=== PATIENT | male | born 1950 | race Caucasian/White ===

== ENCOUNTER 2018-08-11 03:58 | Inpatient (IN) | payer MEDICARE ==
[2018-08-11] VITALS (25 sets, daily range): BP systolic 122–172; BP diastolic 73–105
[~2018-08-11] VITALS: Ht 188 cm; Wt 106.3 kg
[2018-08-11] MEDS ORDERED: dilTIAZem 25 MG/5 ML VIAL IVP ONE ×3 (04:13→05:15)
[2018-08-11] MEDS ORDERED: IV DEXTROSE 5% 100 ML IV ONE (04:14)
[2018-08-11] MEDS ORDERED: LORazepam 2 MG/ML VIAL IV ONE (04:30)
[2018-08-11] MEDS: IV NORMAL SALINE 1,000ML 1,000 ML IV SCH ×4 (04:37→16:41)
[2018-08-11 04:57] LABS: BASO % 0 % (0-3); EOS % 0 % (0-3); HEMOGLOBIN 15.1 g/dL (13.0-17.5); LYMPH # 0.5 x10^3/uL (1.0-4.8); LYMPH % 6 % (24-48); MEAN CORPUSCULAR HEMOGLOBIN 35 pg (25-35); MEAN CORPUSCULAR HGB CONC 35 g/dL (31-37); MEAN CORPUSCULAR VOLUME 101 fL (79-100); MONO # 0.3 x10^3/uL (0.0-1.1); MONO % 4 % (0-9); NEUT # 7.8 x10^3uL (1.8-7.7); NEUT % 90 % (31-73); PLATELET COUNT 305 x10^3/uL (140-400); RED BLOOD COUNT 4.27 x10^6/uL (4.30-5.70); RED CELL DISTRIBUTION WIDTH 14.8 % (11.5-14.5); WHITE BLOOD COUNT 8.6 x10^3/uL (4.0-11.0)
--- NOTE | 2018-08-11 05:02 | PHYS DOC ---
Adult General Chief Complaint Chief Complaint: nausea and vomiting HPI HPI Patient is a 67 year old male who presents with complaint of nausea and vomiting. Patient states his symptoms started 2 days ago. Patient states that he has not been able to keep anything down both liquids and solids. Due to worsening symptoms he called EMS. Patient was noted to have tachycardia on their arrival and rhythm showed showed atrial fibrillation. Patient denies any previous history of atrial fibrillation. Patient states that he was recently hospitalized 3 months ago at another facility due to respiratory infection. Denies any pain currently but states he does feel sick to his stomach. Patient admits to heavy alcohol use stating that he drinks approximately 1 pint of alcohol daily. Patient's last drink of alcohol was 2 days ago. Review of Systems Review of Systems Constitutional: Denies fever or chills [] Eyes: Denies change in visual acuity, redness, or eye pain [] HENT: Denies nasal congestion or sore throat [] Respiratory: Shortness of breath, denies cough[] Cardiovascular: Chronic edema right lower extremity greater than left, denies chest pain[] GI: Nausea, vomiting, denies abdominal pain, bloody stools or diarrhea [] : Denies dysuria or hematuria [] Musculoskeletal: Denies back pain or joint pain [] Integument: Denies rash or skin lesions [] Neurologic: Denies headache, focal weakness or sensory changes [] All other systems were reviewed and found to be within normal limits, except as documented in this note. Current Medications Current Medications Current Medications Medications (Trade) Dose Ordered Sig/Robin Start Time Stop Time Status Last Admin Dose Admin Dextrose 100 ml @ As Directed STK-MED ONCE 08/11/18 04:14 08/11/18 04:15 DC Diltiazem HCl (Cardizem Iv Push) 20 mg 1X ONCE 08/11/18 04:15 08/11/18 04:16 UNV Diltiazem HCl (Cardizem) 125 mg STK-MED ONCE 08/11/18 04:13 08/11/18 04:14 DC Sodium Chloride 1,000 ml @ 125 mls/hr Q8H 08/11/18 04:15 08/11/18 12:14 UNV Allergies Allergies Allergies Coded Allergies Type Severity Reaction Last Updated Verified No Known Drug Allergies 08/11/18 No Physical Exam Physical Exam Constitutional: Alert, afebrile, appears anxious. [] HENT: Normocephalic, atraumatic, bilateral external ears normal, oropharynx moist, no oral exudates, nose normal. [] Eyes: PERRLA, EOMI, conjunctiva normal, no discharge. [] Neck: Normal range of motion, no tenderness, supple, no stridor. [] Cardiovascular: Tachycardia, irregular rhythm, no murmur [] Lungs & Thorax: Bilateral breath sounds clear to auscultation [] Abdomen: Bowel sounds normal, soft, no tenderness, no masses, no pulsatile masses. [] Skin: Warm, dry, no erythema, no rash. [] Back: No tenderness, no CVA tenderness. [] Extremities: No tenderness, no cyanosis, no clubbing, ROM intact, 2+ pitting edema and right lower extremity, 1+ pitting edema in left lower extremity. [] Neurologic: Alert and oriented X 3, tremulous, motor strength normal and symmetric, no focal deficits noted. [] Current Patient Data Vital Signs Vital Signs Date Time Temp Pulse Resp B/P (MAP) Pulse Ox O2 Delivery O2 Flow Rate FiO2 08/11/18 05:15 131 153/104 Lab Results Laboratory Tests Test 08/11/18 04:25 White Blood Count 8.6 x10^3/uL Red Blood Count 4.27 x10^6/uL Hemoglobin 15.1 g/dL Hematocrit 43.0 % Mean Corpuscular Volume 101 fL Mean Corpuscular Hemoglobin 35 pg Mean Corpuscular Hemoglobin Concent 35 g/dL Red Cell Distribution Width 14.8 % Platelet Count 305 x10^3/uL Neutrophils (%) (Auto) 90 % Lymphocytes (%) (Auto) 6 % Monocytes (%) (Auto) 4 % Eosinophils (%) (Auto) 0 % Basophils (%) (Auto) 0 % Neutrophils # (Auto) 7.8 x10^3uL Lymphocytes # (Auto) 0.5 x10^3/uL Monocytes # (Auto) 0.3 x10^3/uL Eosinophils # (Auto) 0.0 x10^3/uL Basophils # (Auto) 0.0 x10^3/uL Prothrombin Time 11.1 SEC Prothromb Time International Ratio 1.1 Activated Partial Thromboplast Time 26 SEC D-Dimer (Urmila) 0.76 mg/L Sodium Level 126 mmol/L Potassium Level 3.8 mmol/L Chloride Level 88 mmol/L Carbon Dioxide Level 22 mmol/L Anion Gap 16 Blood Urea Nitrogen 7 mg/dL Creatinine 1.1 mg/dL Estimated GFR (Cockcroft-Gault) 66.4 BUN/Creatinine Ratio 6 Glucose Level 152 mg/dL Calcium Level 8.6 mg/dL Magnesium Level 1.2 mg/dL Total Bilirubin 3.2 mg/dL Aspartate Amino Transf (AST/SGOT) 34 U/L Alanine Aminotransferase (ALT/SGPT) 36 U/L Alkaline Phosphatase 147 U/L Creatine Kinase 120 U/L Creatine Kinase MB (Mass) 2.5 ng/mL Creatine Kinase MB Relative Index 2.1 % Troponin I Quantitative < 0.017 ng/mL UQ-Iin-W-Type Natriuretic Peptide 1330 pg/mL Total Protein 7.2 g/dL Albumin 4.1 g/dL Albumin/Globulin Ratio 1.3 Current Medications Medications (Trade) Dose Ordered Sig/Robin Route PRN Reason Start Time Stop Time Status Last Admin Dose Admin Diltiazem HCl (Cardizem) 125 mg STK-MED ONCE IV 08/11/18 04:13 08/11/18 04:14 DC Diltiazem HCl (Cardizem Iv Push) 25 mg STK-MED ONCE IVP 08/11/18 04:13 08/11/18 04:14 DC Diltiazem HCl (Cardizem Iv Push) 20 mg 1X ONCE IVP 08/11/18 04:15 08/11/18 05:06 DC 08/11/18 04:38 Dextrose 100 ml @ As Directed STK-MED ONCE IV 08/11/18 04:14 08/11/18 04:15 DC Sodium Chloride 1,000 ml @ 125 mls/hr Q8H IV 08/11/18 04:15 08/11/18 12:14 08/11/18 04:37 Lorazepam (Ativan) 2 mg 1X ONCE IV 08/11/18 04:30 08/11/18 05:06 DC 08/11/18 04:55 Diltiazem HCl (Cardizem Iv Push) 25 mg 1X ONCE IVP 08/11/18 05:15 08/11/18 05:16 08/11/18 05:15 Diltiazem HCl 125 mg/Dextrose 125 ml @ 10 mls/hr 1X ONCE IV 08/11/18 05:15 08/11/18 17:44 08/11/18 05:16 Magnesium Sulfate 50 ml @ 25 mls/hr 1X ONCE IV 08/11/18 05:30 08/11/18 07:29 UNV EKG EKG Interpreted by me: Heart rate 143, atrial fibrillation with rapid ventricular response, no acute ST elevations or depressions[] Radiology/Procedures Radiology/Procedures One view AP chest x-ray interpreted by me: No infiltrates, no effusions, cardiomegaly present[] Course & Med Decision Making Course & Med Decision Making Pertinent Labs and Imaging studies reviewed. (See chart for details) After IV access was obtained, the patient was given an initial dose of 20 mg of IV diltiazem with brief improvement in heart rate. Patient's heart rate however increased back to 150 bpm. The patient also appeared anxious and with his reported heavy alcohol use, 2 mg of IV Ativan was given with no significant change in symptoms. Patient was then given 25 mg of IV diltiazem with a diltiazem drip started shortly after. The patient's current heart rate has improved to 105-115 bpm. Patient remains in atrial fibrillation at this time. Blood pressure has remained stable while on diltiazem. Metabolic panel shows multiple abnormalities including decreased sodium and decreased magnesium levels. Patient shows an elevation in bilirubin levels but is not having active pain at this time. D-dimer levels found to be elevated. Patient given full anticoagulation dose of Lovenox in the emergency department to prevent thrombus formation from atrial fibrillation as well as treatment of possible pulmonary thromboembolism. CT angiogram of the chest was ordered and results pending at time of admission. I spoke with Dr. Helms of cardiology who agreed to consult on patient in hospital here at [facility]. Patient admitted to Dr. Pitt. Dr. Pitt will follow up with results of CT angiogram. Critical care time excluding procedures: 50 minutes Dragon Disclaimer Dragon Disclaimer This electronic medical record was generated, in whole or in part, using a voice recognition dictation system. Departure Departure: Impression: Primary Impression: Atrial fibrillation with RVR Additional Impressions: Hypomagnesemia Hyponatremia Hyperbilirubinemia History of heavy alcohol consumption Elevated d-dimer Nausea and vomiting Disposition: ADMITTED INPATIENT Admitting Physician: Clementina Pitt Condition: GUARDED Problem Qualifiers Additional Impressions: Nausea and vomiting Vomiting type: unspecified Vomiting Intractability: unspecified Qualified Codes: R11.2 - Nausea with vomiting, unspecified AMMON POPE MD Aug 11, 2018 05:02
[2018-08-11] MEDS ORDERED: dilTIAZem VIAL 125 MG in IV DEXTROSE 5% 100 ML IV ONE (05:15)
[2018-08-11 05:22] LABS: ALBUMIN 4.1 g/dL (3.4-5.0); ALBUMIN/GLOBULIN RATIO 1.3 (1.0-1.7); CALCIUM 8.6 mg/dL (8.5-10.1); CREATININE 1.1 mg/dL (0.7-1.3); GFR 66.4; MAGNESIUM 1.2 mg/dL (1.8-2.4); POTASSIUM 3.8 mmol/L (3.5-5.1); TOTAL BILIRUBIN 3.2 mg/dL (0.2-1.0); TOTAL PROTEIN 7.2 g/dL (6.4-8.2)
[2018-08-11] MEDS ORDERED: ENOXAPARIN ** NOTE DOSE ** SYRINGE SQ ONE (05:45)
[2018-08-11] MEDS ORDERED: MAGNESIUM SULFATE 2GM 50 ML IV ONE (05:45)
[2018-08-11] MEDS ORDERED: ACETAMINOPHEN 325 MG TABLET PO PRN (06:00)
[2018-08-11] MEDS ORDERED: ONDANSETRON PF 4 MG/2 ML VIAL. IV PRN (06:00)
[2018-08-11] MEDS ORDERED: IOHEXOL 350 MG/ML 50 ML VIAL. IV ONE ×2 (06:15)
[2018-08-11] MEDS ORDERED: CONTRAST GIVEN MC PRN (06:15)
[2018-08-11] MEDS ORDERED: IOHEXOL 300 MG/ML 50 ML VIAL. IV ONE ×2 (06:15)
--- NOTE | 2018-08-11 06:26 | EKG ---
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
--- NOTE | 2018-08-11 07:08 | RAD ---
INDICATION: Increased D-Dimer, A-Fib w RVR
COMPARISON: Chest x-ray earlier same day TECHNIQUE: Axial CT images obtained through the chest. Intravenous contrast utilized. Angiogram 3D images processed per protocol. One or more of the following individualized dose reduction techniques were utilized for this examination: 1. Automated exposure control; 2. Adjustment of the mA and/or kV according to patient size; 3. Use of iterative reconstruction technique. FINDINGS: There is a couple of sub-4 mm right lung nodules. Motion obscures portions of the chest including the lung bases. No evidence of pneumothorax. Liver is low density in partially seen. Nonspecific but can be seen with fatty infiltration. Small pericardial fluid. Bilateral perinephric stranding partially seen. Small hiatal hernia versus fullness distal esophagus. Limited evaluation of thoracic aorta secondary to only small amount of contrast within. Also limited evaluation of ascending thoracic aorta secondary to obscured by motion. There is some scattered plaque seen. Degenerative changes the spine. Multiple bilateral rib fractures with some callus formation. ascending thoracic aorta measures up to about 4 cm which is mildly prominent. IMPRESSION: No central pulmonary embolus. Limited peripherally secondary to motion especially at the lung bases. There are couple of sub-4 mm right lung nodules. Multiple bilateral rib fractures with callus formation. The esophagus is distended with fluid/debris within. The wall also appears somewhat prominent distally. Would correlate with symptoms to ensure there is not a pathologic cause such as esophagitis or reflux Liver is low-attenuation. Nonspecific but can be seen with fatty infiltration. There is also possible prominence of the wall of the partially visualized gallbladder. Ultrasound could better evaluate. Electronically signed by: Rubens Benson MD (08/11/2018 7:05 AM) [facility]
--- NOTE | 2018-08-11 07:47 | RAD ---
Portable chest, 08/11/2018: HISTORY: Palpitations The heart size and pulmonary vascularity are normal. There is minimal linear scarring or atelectasis in the left base. The lungs are otherwise clear. There is no evidence of pleural fluid. IMPRESSION: Minimal left basilar linear scarring or atelectasis. Electronically signed by: David Christensen MD (08/11/2018 7:43 AM) [facility]
[2018-08-11] MEDS ORDERED: DIGOXIN IV 500 MCG/2 ML AMPUL. IV ONE (09:00)
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
[2018-08-11] MEDS ORDERED: TRAZ-85 PO (10:16)
[2018-08-11] MEDS ORDERED: IPRA3AMP29 NEB (10:16)
[2018-08-11] MEDS ORDERED: ATOR40TA59 PO (10:16)
[2018-08-11] MEDS ORDERED: TRIA1CAP3 PO (10:16)
[2018-08-11] MEDS ORDERED: PANT40TA3 PO (10:16)
[2018-08-11] MEDS ORDERED: ESCITALOPRAM OX10 MG PO (10:16)
[2018-08-11] MEDS ORDERED: LORazepam 1 MG TABLET PO PRN ×2 (10:45)
[2018-08-11] MEDS ORDERED: IPRATRPIUM/ALBUTEROL 0.5/2.5MG 3 ML NEBU. NEB PRN (10:45)
[2018-08-11] MEDS ORDERED: LORazepam 2 MG/ML VIAL IV PRN ×4 (10:45)
[2018-08-11] MEDS ORDERED: chlordiazePOXIDE HCL 25 MG CAPSULE PO PRN ×2 (10:45)
--- NOTE | 2018-08-11 11:22 | HP ---
ADMIT DATE: 08/11/2018 HISTORY OF PRESENT ILLNESS: The patient is a 67-year-old male patient who came to the Emergency Room with a complaint of nausea and vomiting. His symptoms started about 2 days ago. The patient stated that he has not been able to keep anything down, both liquids and solids. Due to worsening symptoms, he called emergency medical service personnel and the patient was noted to have tachycardia on their arrival and the rhythm showed atrial fibrillation. When I questioned him actually, he stated that he was diagnosed with atrial fibrillation when his had pneumonia before and was actually treated with a blood thinner. In fact, he was on Xarelto that he has not filled for more than 4 months ago. His was recently and apparently, the patient went into severe depression for which he was started on trazodone; however, he has been drinking alcohol heavily and drinks about 2 liters of gin in 1 week. He was evaluated in the Emergency Room, was found to be in atrial fibrillation with rapid ventricular response and was given a Cardizem loading dose and started on Cardizem drip and was admitted to ICU for further evaluation and treatment. While in the Emergency Room, he was found also to have elevated D-dimer at 0.6. His chemistry showed that he had also has hyponatremia and hypochloremia and severe hypomagnesemia that were corrected. PAST MEDICAL HISTORY: Significant for recent history of pneumonia, atrial fibrillation, hypertension, hyperlipidemia, benign prostatic hypertrophy. PAST SURGICAL HISTORY: Significant for tonsillectomy, colonoscopy with polypectomy x 2. ALLERGIES: He has no known drug allergies. MEDICATIONS: He is currently on following medications: He is on Protonix 40 mg once a day, atorvastatin 40 mg at bedtime. He is on trazodone 50 mg at bedtime, Lexapro 10 mg once a day, triamterene/hydrochlorothiazide 37.5/25 one tablet once a day. He was also on Xarelto that he has not refilled for the last 4 months. FAMILY HISTORY: He has one brother, older, of lung cancer and another sister also of bone cancer. His younger sister is alive and healthy. His father at age of 84 because of CVA and end-stage renal disease. Mother at age of 84 and has multiple medical problems. SOCIAL HISTORY: He was recently, has two daughters and one son. He does not smoke; however, he drinks alcohol heavily. He said he finishes 2 liters of gin a week. He is retired from the [employer] office. 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 REVIEW OF SYSTEMS: The patient denied any blurring of vision, cataract, glaucoma, or macular degeneration. Denied any earache, tinnitus, or sensorineural deafness. Denied any nosebleeds, stuffy nose, or postnasal drip. Denied any sore throat, sore tongue, toothache, hoarseness of voice or difficulty swallowing. Did complain of nausea, vomiting, but denied any diarrhea or constipation. Denied any hematemesis, melena, or hematochezia. Denied any dysuria, frequency, or hematuria. Did complain of nocturia. Denied any chest pain, shortness of breath, cough, phlegm, or hemoptysis. Denied any chills, rigors, or fever. Did complain of hiccupping that has been going continuously for the last 2-3 days. PHYSICAL EXAMINATION: VITAL SIGNS: When I examined him in the ICU, he has reverted back to sinus rhythm. His heart rate was 78, blood pressure 156/100, temperature was 98, respiratory rate was 20, and oxygen saturation was 97% on room air. HEAD, EYES, EARS, NOSE AND THROAT: Showed normocephalic, atraumatic. NECK: Supple. HEART: Showed normal first and second heart sounds. No gallop, rub, or murmur. CHEST: Clear to auscultation. No crepitation or rhonchi. ABDOMEN: Distended, soft, nontender. NEUROLOGIC: He was awake, alert, responding appropriately. All cranial nerves intact. He moves extremities without difficulty. He apparently ambulates without assistance or assistive devices. LABORATORY DATA: Showed a white cell count of 8600, hemoglobin 15, hematocrit 43, MCV 101, and platelet count of 305,000 with normal manual differential. His prothrombin time was 11.1, INR 1.1, aPTT was 26, and D-dimer was 0.76. His serum sodium was 126, potassium 3.8, chloride 88, bicarbonate 22, anion gap of 16, BUN 7, creatinine 1.1, estimated GFR was 66 mL per minute, his glucose 152, calcium was 8.6, magnesium was 1.2. Total bilirubin was 3.2. AST, ALT were normal. Alkaline phosphatase was slightly elevated. His creatinine kinase was 120. First set of cardiac enzymes showed troponin to be less than 0.017. His beta natriuretic peptide was 1330. Total protein was 7.2, albumin was 4.1. He has had a chest x-ray, which showed that the heart size and pulmonary vascularity are normal. There is minimal linear scarring or atelectasis in the left base. The lungs are otherwise clear. There is no evidence of pleural effusion as he has also elevated D-dimer. He underwent a CT angiography of the chest, which basically showed that there is no evidence of pneumothorax. Liver is low density and partially seen nonspecific, but can be seen with fatty infiltration, small pericardial fluid. Bilateral perinephric stranding partially seen. Small hiatal hernia versus fullness of distal esophagus, limited evaluation of the thoracic aorta secondary to only small amount of contrast within, also limited evaluation of the ascending thoracic aorta secondary to obscured excretion by motion. There is some scattered plaques seen. Degenerative changes in the spine, multiple bilateral rib fractures with some callus formation. The ascending thoracic aorta measures up to about 4 cm, which is mildly prominent. The impression the patient has no central pulmonary emboli limited peripherally secondary to motion, especially at the lung bases. There are a couple of 4 mm right lung nodules, multiple bilateral rib fractures with callus formation. The esophagus is distended with fluid and debris within. The wall also appears somewhat prominent distally, would correlate symptoms to ensure there is no pathology cause such as esophagitis or reflux. There is also possible prominence of the wall of the partially visualized gallbladder, ultrasound can better evaluate. My plan is obviously to continue with the Lovenox for now, continue with diltiazem. I will arrange for him to have an abdominal ultrasound as he has elevated bilirubin and alkaline phosphatase, raising possibility of biliary obstruction and we will repeat all his lab work again. I will start him also on baclofen for his hiccupping. BLANCA FRASER MD DR: [email or web address]/georges JOB#: [id number] / [id number]
[2018-08-11 12:50] LABS: ALBUMIN 3.6 g/dL (3.4-5.0); ALBUMIN/GLOBULIN RATIO 1.2 (1.0-1.7); CREATININE 1.3 mg/dL (0.7-1.3); GFR 54.7; POTASSIUM 3.5 mmol/L (3.5-5.1); TOTAL BILIRUBIN 3.1 mg/dL (0.2-1.0); TOTAL PROTEIN 6.6 g/dL (6.4-8.2)
[2018-08-11] MEDS: BACLOFEN 10 MG TABLET PO SCH ×3 (13:26→21:30)
[2018-08-11] MEDS ORDERED: ASPI-612 PO (13:40)
[2018-08-11] MEDS ORDERED: MULT-245 PO (13:40)
--- NOTE | 2018-08-11 15:52 | CARD ---
MR#: [id number] Date of Study: 08/11/2018 Ordering Physician: CHACHO CHOUDHARY, Referring Physician: BLANCA FRASER Tech: Cornelia Valero AMITA APPROVED REPORT EXAM: Two-dimensional and M-mode echocardiogram with Doppler and color Doppler. Other Information Quality : Technically LimitedHR: 68bpm Rhythm : NSR INDICATION Arrhythmia 2D DIMENSIONS RVDd4.3 (2.9-3.5cm)Left Atrium(2D)4.5 (1.6-4.0cm) IVSd1.5 (0.7-1.1cm)Aortic Root(2D)4.0 (2.0-3.7cm) LVDd4.9 (3.9-5.9cm)LVOT Diameter2.8 (1.8-2.4cm) PWd1.1 (0.7-1.1cm)LVDs3.4 (2.5-4.0cm) FS (%) 29.0 %SV61.2 ml LVEF(%)55.6 (>50%) M-Mode DIMENSIONS Left Atrium(MM)4.53 (2.5-4.0cm)Aortic Root4.06 (2.2-3.7cm) Aortic Valve AoV Peak Jamal.177.6cm/sAoV VTI37.8cm AO Peak GR.12.6mmHgLVOT Peak Jamal.159.5cm/s LVOT VTI 33.06cmAO Mean GR.7mmHg VALE (VMAX)5.19vp5JXM (VTI)5.51cm2 Mitral Valve MV E Cwaixgfm945.8cm/sMV DECEL [id number] MV A Xqmsnyvd51.4cm/sE/A Ratio1.6 MV A [id number] Pulmonary Valve PV Peak Umpzyskl484.1cm/sPV Peak Grad.4mmHg LEFT VENTRICLE The left ventricle is normal size. There is mild concentric left ventricular hypertrophy. The left ve ntricular systolic function is normal and the ejection fraction is within normal range. The Ejection Fraction is 55-60%. There is normal LV segmental wall motion. Transmitral Doppler flow pattern is Gra de II-pseudonormal filling dynamics. RIGHT VENTRICLE The right ventricle is mildly dilated. There is normal right ventricular wall thickness. The right ve ntricular systolic function is normal. ATRIA The left atrium is mildly dilated. The right atrium is mildly dilated. The interatrial septum is inta ct with no evidence for an atrial septal defect or patent foramen ovale as noted on 2-D or Doppler im aging. AORTIC VALVE The aortic valve is probably trileaflet. Doppler and Color Flow revealed no significant aortic regurg itation. There is no significant aortic valvular stenosis. MITRAL VALVE The mitral valve is normal in structure and function. There is no evidence of mitral valve prolapse. There is no mitral valve stenosis. Doppler and Color Flow revealed no mitral valve regurgitation note d. TRICUSPID VALVE The tricuspid valve is normal in structure and function. Doppler and Color Flow revealed no tricuspid valve regurgitation noted. There is no tricuspid valve prolapse or vegetation. There is no tricuspid valve stenosis. PULMONIC VALVE Pulmonic valve not well visualized. GREAT VESSELS The aortic root is mildly enlarged. The ascending aorta is Mildly dilated. The IVC is normal in size and collapses >50% with inspiration. PERICARDIAL EFFUSION There is no evidence of significant pericardial effusion. Fat pad noted. Critical Notification Critical Value: No <Conclusion> The left ventricular systolic function is normal and the ejection fraction is within normal range. Th e Ejection Fraction is 55-60%. There is normal LV segmental wall motion. Signed by : Ronnie Helms, Electronically Approved : 08/11/2018 15:51:02
[2018-08-11 17:31] LABS: THYROID STIM HORMONE (TSH) 2.81 uIU/mL (0.358-3.740)
[2018-08-11] MEDS: TAMSULOSIN 0.4 MG CAP.ER.24H. PO SCH (21:30)
[2018-08-11] MEDS: ATORVASTATIN CALCIUM 20 MG TABLET PO SCH (21:30)
[2018-08-11] MEDS: ENOXAPARIN ** NOTE DOSE ** SYRINGE SQ SCH (21:38)
[2018-08-11] MEDS: MAGNESIUM OXIDE 400 MG TABLET PO SCH (22:35)
[2018-08-12] VITALS (13 sets, daily range): BP systolic 103–159; BP diastolic 46–94
[2018-08-12] MEDS: IV NORMAL SALINE 1,000ML 1,000 ML IV SCH (01:45)
[2018-08-12 06:19] LABS: BASO % 1 % (0-3); EOS % 1 % (0-3); HEMATOCRIT 35.9 % (39.0-53.0); HEMOGLOBIN 12.5 g/dL (13.0-17.5); LYMPH # 0.9 x10^3/uL (1.0-4.8); LYMPH % 22 % (24-48); MEAN CORPUSCULAR HEMOGLOBIN 35 pg (25-35); MEAN CORPUSCULAR HGB CONC 35 g/dL (31-37); MEAN CORPUSCULAR VOLUME 102 fL (79-100); MONO # 0.4 x10^3/uL (0.0-1.1); MONO % 9 % (0-9); NEUT # 2.9 x10^3uL (1.8-7.7); NEUT % 68 % (31-73); PLATELET COUNT 220 x10^3/uL (140-400); RED BLOOD COUNT 3.54 x10^6/uL (4.30-5.70); RED CELL DISTRIBUTION WIDTH 14.7 % (11.5-14.5); WHITE BLOOD COUNT 4.3 x10^3/uL (4.0-11.0)
[2018-08-12 06:35] LABS: ALBUMIN/GLOBULIN RATIO 1.2 (1.0-1.7); CALCIUM 7.7 mg/dL (8.5-10.1); CREATININE 1.3 mg/dL (0.7-1.3); GFR 54.7; MAGNESIUM 1.8 mg/dL (1.8-2.4); POTASSIUM 3.1 mmol/L (3.5-5.1); TOTAL BILIRUBIN 2.5 mg/dL (0.2-1.0); TOTAL PROTEIN 5.6 g/dL (6.4-8.2)
[2018-08-12] MEDS ORDERED: POTASSIUM CHLORIDE 20 MEQ TABLET.ER. PO ONE (07:30)
[2018-08-12] MEDS: PANTOPRAZOLE 40 MG TABLET. PO SCH (08:33)
[2018-08-12] MEDS: MAGNESIUM OXIDE 400 MG TABLET PO SCH ×2 (08:33→20:50)
[2018-08-12] MEDS: BACLOFEN 10 MG TABLET PO SCH ×4 (08:33→20:50)
[2018-08-12] MEDS: ENOXAPARIN ** NOTE DOSE ** SYRINGE SQ SCH (08:38)
--- NOTE | 2018-08-12 09:19 | PDOC ---
PROGRESS NOTES Diagnosis Problem Problems Medical Problems: (1) Atrial fibrillation with RVR Status: Acute (2) Elevated d-dimer Status: Acute (3) History of heavy alcohol consumption Status: Acute (4) Hyperbilirubinemia Status: Acute (5) Hypomagnesemia Status: Acute (6) Hyponatremia Status: Acute (7) Nausea and vomiting Status: Acute Assessment Problems Medical Problems: (1) Atrial fibrillation with RVR Status: Acute (2) Elevated d-dimer Status: Acute (3) History of heavy alcohol consumption Status: Acute (4) Hyperbilirubinemia Status: Acute (5) Hypomagnesemia Status: Acute (6) Hyponatremia Status: Acute (7) Nausea and vomiting Status: Acute 1. Atrial fibrillation with RVR - now sinus rhythm. Continue oral Cardizem. [id number]. Eliquis for stroke prophylaxis after fall risk assessment. MCT for AF burden outpatient. 2. hypertension - add ARB for diastolic dysfunction. 3. HLD - continue statin 4. Etoh abuse - cessation encouraged. per PCP 5. hypokalemia - replace 6. hyponatremia - per PCP Subjective no dyspnea, no palpitations, no chest pain, c/o nausea and unsteady on feet Objective telle - SR, no significant ectopy echo The left ventricular systolic function is normal and the ejection fraction is within normal range. The Ejection Fraction is 55-60%. There is normal LV segmental wall motion. Vital Signs Date Time Temp Pulse Resp B/P (MAP) Pulse Ox O2 Delivery O2 Flow Rate FiO2 08/12/18 08:45 Room Air 08/12/18 08:43 73 20 146/85 (105) 97 08/12/18 05:01 98.2 08/11/18 07:10 97.0 Intake and Output 08/12/18 07:00 Intake Total 1932 ml Output Total 1125 ml Balance 807 ml Intake Oral 600 ml IV Total 1332 ml Output Urine Total 1125 ml Abdomen: Normal bowel sounds, Soft, No tenderness Heart: Regular rate, Normal S1, Normal S2, Other (no significant murmurs, no gallops, clicks or rubs) Extremities: No cyanosis, Normal pulses, Other (trace to 1+ bilateral lower ext edema) General: Alert, Oriented X3, Cooperative, No acute distress HEENT: Atraumatic, EOMI, Mucous membr. moist/pink Lungs: Clear to auscultation, Normal air movement Neuro: Normal speech, Strength at 5/5 X4 ext Psych/Mental Status: Mood NL Review of Relevant I have reviewed the following items edwin (where applicable) has been applied. Labs Laboratory Tests Test 08/11/18 04:25 08/11/18 08:16 08/11/18 08:58 08/11/18 12:26 White Blood Count 8.6 x10^3/uL (4.0-11.0) Red Blood Count 4.27 x10^6/uL (4.30-5.70) Hemoglobin 15.1 g/dL (13.0-17.5) Hematocrit 43.0 % (39.0-53.0) Mean Corpuscular Volume 101 fL (79-100) Mean Corpuscular Hemoglobin 35 pg (25-35) Mean Corpuscular Hemoglobin Concent 35 g/dL (31-37) Red Cell Distribution Width 14.8 % (11.5-14.5) Platelet Count 305 x10^3/uL (140-400) Neutrophils (%) (Auto) 90 % (31-73) Lymphocytes (%) (Auto) 6 % (24-48) Monocytes (%) (Auto) 4 % (0-9) Eosinophils (%) (Auto) 0 % (0-3) Basophils (%) (Auto) 0 % (0-3) Neutrophils # (Auto) 7.8 x10^3uL (1.8-7.7) Lymphocytes # (Auto) 0.5 x10^3/uL (1.0-4.8) Monocytes # (Auto) 0.3 x10^3/uL (0.0-1.1) Eosinophils # (Auto) 0.0 x10^3/uL (0.0-0.7) Basophils # (Auto) 0.0 x10^3/uL (0.0-0.2) Prothrombin Time 11.1 SEC (9.4-11.4) Prothromb Time International Ratio 1.1 (0.9-1.1) Activated Partial Thromboplast Time 26 SEC (23-33) D-Dimer (Urmila) 0.76 mg/L (0.00-0.50) Sodium Level 126 mmol/L (136-145) 126 mmol/L (136-145) Potassium Level 3.8 mmol/L (3.5-5.1) 3.5 mmol/L (3.5-5.1) Chloride Level 88 mmol/L (98-107) 89 mmol/L (98-107) Carbon Dioxide Level 22 mmol/L (21-32) 27 mmol/L (21-32) Anion Gap 16 (6-14) 10 (6-14) Blood Urea Nitrogen 7 mg/dL (8-26) 7 mg/dL (8-26) Creatinine 1.1 mg/dL (0.7-1.3) 1.3 mg/dL (0.7-1.3) Estimated GFR (Cockcroft-Gault) 66.4 54.7 BUN/Creatinine Ratio 6 (6-20) 5 (6-20) Glucose Level 152 mg/dL (70-99) 154 mg/dL (70-99) Calcium Level 8.6 mg/dL (8.5-10.1) 8.0 mg/dL (8.5-10.1) Magnesium Level 1.2 mg/dL (1.8-2.4) 1.8 mg/dL (1.8-2.4) Total Bilirubin 3.2 mg/dL (0.2-1.0) 3.1 mg/dL (0.2-1.0) Aspartate Amino Transf (AST/SGOT) 34 U/L (15-37) 26 U/L (15-37) Alanine Aminotransferase (ALT/SGPT) 36 U/L (16-63) 31 U/L (16-63) Alkaline Phosphatase 147 U/L (46-116) 130 U/L (46-116) Creatine Kinase 120 U/L (39-308) Creatine Kinase MB (Mass) 2.5 ng/mL (0.0-3.6) Creatine Kinase MB Relative Index 2.1 % (0-4) Troponin I Quantitative < 0.017 ng/mL (0-0.055) < 0.017 ng/mL (0-0.055) < 0.017 ng/mL (0-0.055) NU-Znb-L-Type Natriuretic Peptide 1330 pg/mL (0-124) Total Protein 7.2 g/dL (6.4-8.2) 6.6 g/dL (6.4-8.2) Albumin 4.1 g/dL (3.4-5.0) 3.6 g/dL (3.4-5.0) Albumin/Globulin Ratio 1.3 (1.0-1.7) 1.2 (1.0-1.7) Triglycerides Level 48 mg/dL (0-150) Cholesterol Level 243 mg/dL (0-200) LDL Cholesterol, Calculated 88 mg/dL (0-100) VLDL Cholesterol, Calculated 9 mg/dL (0-40) Non-HDL Cholesterol Calculated 97 mg/dL (0-129) HDL Cholesterol 146 mg/dL (40-60) Cholesterol/HDL Ratio 1.0 Thyroid Stimulating Hormone (TSH) 2.810 uIU/mL (0.358-3.740) Nasal Screen MRSA (PCR) Negative (Negative) Test 08/12/18 05:55 White Blood Count 4.3 x10^3/uL (4.0-11.0) Red Blood Count 3.54 x10^6/uL (4.30-5.70) Hemoglobin 12.5 g/dL (13.0-17.5) Hematocrit 35.9 % (39.0-53.0) Mean Corpuscular Volume 102 fL (79-100) Mean Corpuscular Hemoglobin 35 pg (25-35) Mean Corpuscular Hemoglobin Concent 35 g/dL (31-37) Red Cell Distribution Width 14.7 % (11.5-14.5) Platelet Count 220 x10^3/uL (140-400) Neutrophils (%) (Auto) 68 % (31-73) Lymphocytes (%) (Auto) 22 % (24-48) Monocytes (%) (Auto) 9 % (0-9) Eosinophils (%) (Auto) 1 % (0-3) Basophils (%) (Auto) 1 % (0-3) Neutrophils # (Auto) 2.9 x10^3uL (1.8-7.7) Lymphocytes # (Auto) 0.9 x10^3/uL (1.0-4.8) Monocytes # (Auto) 0.4 x10^3/uL (0.0-1.1) Eosinophils # (Auto) 0.0 x10^3/uL (0.0-0.7) Basophils # (Auto) 0.0 x10^3/uL (0.0-0.2) Sodium Level 129 mmol/L (136-145) Potassium Level 3.1 mmol/L (3.5-5.1) Chloride Level 94 mmol/L (98-107) Carbon Dioxide Level 26 mmol/L (21-32) Anion Gap 9 (6-14) Blood Urea Nitrogen 8 mg/dL (8-26) Creatinine 1.3 mg/dL (0.7-1.3) Estimated GFR (Cockcroft-Gault) 54.7 BUN/Creatinine Ratio 6 (6-20) Glucose Level 95 mg/dL (70-99) Calcium Level 7.7 mg/dL (8.5-10.1) Magnesium Level 1.8 mg/dL (1.8-2.4) Total Bilirubin 2.5 mg/dL (0.2-1.0) Aspartate Amino Transf (AST/SGOT) 21 U/L (15-37) Alanine Aminotransferase (ALT/SGPT) 23 U/L (16-63) Alkaline Phosphatase 101 U/L (46-116) Total Protein 5.6 g/dL (6.4-8.2) Albumin 3.0 g/dL (3.4-5.0) Albumin/Globulin Ratio 1.2 (1.0-1.7) Lipase 100 U/L (73-393) Medications Current Medications Diltiazem HCl (Cardizem) 125 mg STK-MED ONCE IV ; Start 08/11/18 at 04:13; Stop 08/11/18 at 04:14; Status DC Diltiazem HCl (Cardizem Iv Push) 25 mg STK-MED ONCE IVP ; Start 08/11/18 at 04: 13; Stop 08/11/18 at 04:14; Status DC Diltiazem HCl (Cardizem Iv Push) 20 mg 1X ONCE IVP Last administered on at 04:38; Start 08/11/18 at 04:15; Stop 08/11/18 at 05:06; Status DC Dextrose 100 ml @ As Directed STK-MED ONCE IV ; Start 08/11/18 at 04:14; Stop 08/11/18 at 04:15; Status DC Sodium Chloride 1,000 ml @ 125 mls/hr Q8H IV Last administered on 08/11/18at 06 :51; Start 08/11/18 at 04:15; Stop 08/11/18 at 12:14; Status DC Lorazepam (Ativan) 2 mg 1X ONCE IV Last administered on 08/11/18at 04:55; Start 08/11/18 at 04:30; Stop 08/11/18 at 05:06; Status DC Diltiazem HCl (Cardizem Iv Push) 25 mg 1X ONCE IVP Last administered on at 05:15; Start 08/11/18 at 05:15; Stop 08/11/18 at 05:37; Status DC Diltiazem HCl 125 mg/Dextrose 125 ml @ 10 mls/hr 1X ONCE IV Last administered on 08/11/18at 05:16; Start 08/11/18 at 05:15; Stop 08/11/18 at 17:44 ; Status DC Magnesium Sulfate 50 ml @ 25 mls/hr 1X ONCE IV Last administered on 08/11/18at 06:55; Start 08/11/18 at 05:45; Stop 08/11/18 at 07:44; Status DC Enoxaparin Sodium (Lovenox 100mg Syringe) 100 mg 1X ONCE SQ Last administered on 08/11/18at 06:53; Start 08/11/18 at 05:45; Stop 08/11/18 at 05:46; Status DC Iohexol (Omnipaque 350 Mg/ml) 50 ml 1X ONCE IV ; Start 08/11/18 at 06:15; Stop 08/11/18 at 06:16; Status DC Iohexol (Omnipaque 350 Mg/ml) 50 ml 1X ONCE IV ; Start 08/11/18 at 06:15; Stop 08/11/18 at 06:16; Status DC Ondansetron HCl (Zofran) 4 mg PRN Q4HRS PRN IV NAUSEA/VOMITING; Start 08/11/18 at 06:00; Stop 08/12/18 at 05:59; Status DC Sodium Chloride 1,000 ml @ 100 mls/hr Q10H IV Last administered on 08/12/18at 01:45; Start 08/11/18 at 06:00; Stop 08/12/18 at 05:59; Status DC Acetaminophen (Tylenol) 650 mg PRN Q4HRS PRN PO FEVER; Start 08/11/18 at 06:00 ; Stop 08/12/18 at 05:59; Status DC Info (Do NOT chart on this entry -- for MONITORING) 1 each PRN DAILY PRN MC SEE COMMENTS; Start 08/11/18 at 06:15; Stop 08/13/18 at 06:14 Iohexol (Omnipaque 300 Mg/ml) 50 ml 1X ONCE IV Last administered on 08/11/18at 06:27; Start 08/11/18 at 06:15; Stop 08/11/18 at 06:16; Status DC Iohexol (Omnipaque 300 Mg/ml) 50 ml 1X ONCE IV Last administered on 08/11/18at 06:27; Start 08/11/18 at 06:15; Stop 08/11/18 at 06:16; Status DC Influenza Virus Vaccine (Afluria Trivalent [id number] Syringe) 0.5 ml ONCE ONCE VAX IM Last administered on 08/12/18at 08:36; Start 08/11/18 at 09:00; Stop 08/11/18 at 09:01; Status DC Digoxin (Lanoxin) 500 mcg 1X ONCE IV Last administered on 08/11/18at 08:54; Start 08/11/18 at 09:00; Stop 08/11/18 at 09:01; Status DC Diltiazem HCl (Cardizem 24hr Cd) 240 mg DAILY PO Last administered on at 08:33; Start 08/11/18 at 10:00 Enoxaparin Sodium (Lovenox 100mg Syringe) 100 mg Q12HR SQ Last administered on 08/12/18at 08:38; Start 08/11/18 at 21:00 Albuterol/ Ipratropium (Duoneb) 3 ml TID PRN PRN NEB SHORTNESS OF BREATH; Start 08/11/18 at 10:45 Atorvastatin Calcium (Lipitor) 40 mg QHS PO Last administered on 08/11/18at 21: 30; Start 08/11/18 at 21:00 Pantoprazole Sodium (Protonix) 40 mg DAILYAC PO Last administered on 08/12/18at 08:33; Start 08/12/18 at 07:30 Multivitamins/ Minerals 10 ml/ Thiamine HCl 100 mg/Folic Acid 1 mg/Sodium Chloride 1,011.2 ml @ 100 mls/ hr DAILY IV ; Start 08/12/18 at 09:00; Stop 08/17/18 at 08:59 Chlordiazepoxide (Librium) 50 mg PRN Q1HR PRN PO For CIWA 8-14; Start 08/11/18 at 10:45 Chlordiazepoxide (Librium) 100 mg PRN Q1HR PRN PO For CIWA 15 or greater; Start 08/11/18 at 10:45 Lorazepam (Ativan) 4 mg PRN Q1HR PRN PO For CIWA 8-14; Start 08/11/18 at 10:45 Lorazepam (Ativan) 8 mg PRN Q1HR PRN PO For CIWA 15 or greater; Start 08/11/18 at 10:45 Lorazepam (Ativan) 2 mg PRN Q1HR PRN IV For CIWA 8-14; Start 08/11/18 at 10:45 Lorazepam (Ativan) 4 mg PRN Q1HR PRN IV For CIWA 15 or greater; Start 08/11/18 at 10:45 Lorazepam (Ativan) 2 mg PRN Q15MIN PRN IV ; Start 08/11/18 at 10:45; Status UNV Lorazepam (Ativan) 2 mg PRN Q15MIN PRN IV ; Start 08/11/18 at 10:45; Status UNV Lorazepam 100 mg/ Sodium Chloride 150 ml @ 3 mls/hr CONT PRN IV ; Start at 10:45; Status UNV Baclofen (Lioresal) 10 mg QID PO Last administered on 08/12/18at 08:33; Start 08/11/18 at 13:00 Tamsulosin HCl (Flomax) 0.4 mg QHS PO Last administered on 08/11/18at 21:30; Start 08/11/18 at 21:00 Magnesium Oxide (Magnesium Oxide) 400 mg BID PO Last administered on 08/12/18at 08:33; Start 08/11/18 at 22:00 Potassium Chloride (Klor-Con) 40 meq 1X ONCE PO Last administered on at 08:33; Start 08/12/18 at 07:30; Stop 08/12/18 at 07:35; Status DC Active Scripts Active Reported Aspirin Ec (Aspirin) 81 Mg Tablet. 1 Tab PO DAILY Multi Vitamin Daily (Multivitamin) 1 Each Tablet 1 Each PO DAILY Duoneb 0.5-3(2.5) Mg/3 Ml (Albuterol/Ipratropium) 3 Ml Ampul.neb 3 Ml NEB TID PRN PRN Triamterene-Hctz 37.5-25 Mg Cp (Triamterene/Hydrochlorothiazid) 1 Each Capsule 1 Cap PO DAILY Escitalopram Oxalate 10 Mg Tablet 1 Tab PO DAILY Trazodone Hcl 50 Mg Tablet 1 Tab PO QHS Atorvastatin Calcium 40 Mg Tablet 40 Mg PO QHS Protonix (Pantoprazole Sodium) 40 Mg Tablet. 1 Tab PO DAILY Vitals/I & O Vital Sign - Last 24 Hours 08/11/18 08/11/18 08/11/18 08/11/18 09:15 09:30 09:45 10:00 Pulse 78 76 90 82 Resp 16 20 20 17 B/P (MAP) 136/97 (110) 158/98 (118) 163/97 (119) 156/100 (118) Pulse Ox 91 94 94 94 O2 Delivery Room Air Room Air Room Air Room Air 08/11/18 08/11/18 08/11/18 08/11/18 10:02 10:15 10:30 11:02 Pulse 78 78 94 77 Resp 19 20 17 B/P (MAP) 156/100 169/94 (119) 157/92 (113) 154/83 (106) Pulse Ox 95 93 O2 Delivery Room Air Room Air Room Air 08/11/18 08/11/18 08/11/18 08/11/18 11:57 12:00 13:00 14:00 Temp 98.6 Pulse 83 68 82 Resp 21 17 24 B/P (MAP) 147/90 (109) 145/73 (97) 170/95 (120) Pulse Ox 93 92 93 O2 Delivery Room Air Room Air Room Air Room Air 08/11/18 08/11/18 08/11/18 08/11/18 15:00 16:00 16:00 17:00 Temp 98.1 Pulse 72 80 78 Resp 29 25 24 B/P (MAP) 172/89 (116) 145/95 (112) 151/79 (103) Pulse Ox 93 93 93 O2 Delivery Room Air Room Air Room Air Room Air 08/11/18 08/11/18 08/11/18 08/11/18 18:02 18:55 19:53 20:24 Temp 98.7 Pulse 87 60 75 Resp 21 14 B/P (MAP) 167/88 (114) 127/75 (92) 154/95 (114) Pulse Ox 95 97 O2 Delivery Room Air Room Air Room Air 08/11/18 08/11/18 08/11/18 08/11/18 20:55 21:55 22:58 23:10 Temp 97.4 Pulse 60 60 69 Resp 17 17 17 B/P (MAP) 140/96 (111) 164/93 (116) 161/80 (107) Pulse Ox 95 96 O2 Delivery Room Air Room Air Room Air Room Air 08/12/18 08/12/18 08/12/18 08/12/18 00:22 01:18 01:58 02:58 Pulse 76 64 64 63 Resp 18 16 14 19 B/P (MAP) 159/78 (105) 121/57 (78) 124/50 (74) 121/46 (71) Pulse Ox 97 95 O2 Delivery Room Air Room Air Room Air 08/12/18 08/12/18 08/12/18 08/12/18 03:55 05:01 05:05 06:01 Temp 98.2 Pulse 64 60 62 Resp 14 17 18 B/P (MAP) 135/68 (90) 140/72 (94) 152/86 (108) Pulse Ox 96 96 O2 Delivery Room Air Room Air Room Air Room Air 08/12/18 08/12/18 08/12/18 08/12/18 06:55 08:33 08:43 08:45 Pulse 59 71 73 Resp 15 20 B/P (MAP) 131/73 (92) 131/73 146/85 (105) Pulse Ox 97 O2 Delivery Room Air Room Air Room Air Intake and Output 08/11/18 08/11/18 08/12/18 15:00 23:00 07:00 Intake Total 395 ml 1437 ml 100 ml Output Total 750 ml 375 ml Balance -355 ml 1062 ml 100 ml CHACHO CHOUDHARY APRN Aug 12, 2018 09:19
[2018-08-12] MEDS: MVI, ADULT NO.4 WITH VIT K 10 ML, THIAMINE INJ 100 MG, FOLIC ACID INJ 1 MG in IV NORMAL... IV SCH ×4 (09:52)
[2018-08-12] MEDS: ONDANSETRON ODT 4 MG TAB.RAPDIS PO PRN ×2 (10:15→20:49)
--- NOTE | 2018-08-12 13:21 | RAD ---
Ultrasound of the right upper quadrant of the abdomen 08/12/2018 CLINICAL HISTORY: Right upper quadrant abdominal pain. TECHNIQUE: A real-time ultrasound examination of the right upper quadrant of the abdomen was performed. Multiple images were obtained. FINDINGS: The gallbladder is slightly contracted. No gallstones are visualized. The gallbladder wall thickness is within normal limits. No pericholecystic fluid is seen. The common bile duct measures 5 mm in diameter which is within normal limits. The liver is normal in size measuring 17.4 cm in length. Increased echogenicity of the liver parenchyma is seen consistent with mild fatty infiltration. The visualized portions of pancreas and right kidney are within normal limits. No free fluid is seen. IMPRESSION: Mild fatty infiltration of the liver. Otherwise negative study. Electronically signed by: Jonny Alvarado MD (08/12/2018 1:18 PM) [facility] [id number]
[2018-08-12] MEDS: ENOXAPARIN 40 MG/0.4 ML SYRINGE. SQ SCH (13:30)
[2018-08-12] MEDS: ATORVASTATIN CALCIUM 20 MG TABLET PO SCH (20:50)
[2018-08-12] MEDS: TAMSULOSIN 0.4 MG CAP.ER.24H. PO SCH (20:50)
[2018-08-13] VITALS (8 sets, daily range): BP systolic 109–154; BP diastolic 67–96
--- NOTE | 2018-08-13 00:01 | PN ---
DATE: 08/12/2018 SUBJECTIVE: The patient is resting, slightly propped up in bed, sleeping comfortably, in no apparent distress. On questioning him, he continued to have nausea, but no vomiting; denied any abdominal pain. His serum bilirubin and alkaline phosphatase were high and I did order an abdominal ultrasound, the results are still pending at the time of this dictation. OBJECTIVE: GENERAL: On examining him this morning, he looked well and was clearly in no apparent respiratory distress, pale, no jaundice, no cyanosis or thyromegaly. No jugular venous distension. No limb edema. VITAL SIGNS: Her heart rate was 71, blood pressure was 136/75, temperature was 98.2, respiratory rate was 13, and oxygen saturation was 97%. HEENT: Examination of the head, eyes, ears, nose and throat showed normocephalic, atraumatic. NECK: Supple. HEART: Showed normal first and second sounds. No gallop, rub or murmur. CHEST: Clear to auscultation. No crepitation or rhonchi. ABDOMEN: Distended, soft, nontender. NEUROLOGIC: He was sleepy, but arousable. All his cranial nerves are intact. EXTREMITIES: He moves extremities without difficulty, although he is unsteady on his feet. His intake over the last 24 hours was 1900, output was 1125. LABORATORY DATA: His lab work this morning showed the serum sodium has risen slightly up to 129, potassium 3.1, chloride 94, bicarbonate 26, anion gap of 9, BUN 8, creatinine 1.3, estimated GFR was 54 mL per minute. His glucose was 95, calcium was 7.7, magnesium was 1.8. His total bilirubin is still high at 2.5. ALT, AST and alkaline phosphatase are all normal. His total protein was 5.6, albumin 3. His serum lipase was only 100. His TSH was 2.810. His white cell count was 4300, hemoglobin 12.5, hematocrit 36, MCV 102, and platelet count of ____. His prothrombin time was 11.1, INR 1.1, aPTT was 26, and D-dimer was 0.76. ASSESSMENT: This is a 67-year-old male patient who was admitted with atrial fibrillation with rapid ventricular response. Other medical problems include hypertension, hyperlipidemia, benign prostatic hypertrophy. He has also multiple other medical problems including multiple electrolyte anomalies including hypomagnesemia, hypokalemia, hyponatremia. Her sodium is trending upward, today is 129. I did discontinue or hold his trazodone, Lexapro, and his triamterene/hydrochlorothiazide. His magnesium has normalized and it is now 1.8 and potassium is low at 3.1 for which he is on potassium supplement. PLAN: I discontinued his Lovenox the therapeutic dose, but continued with the prophylactic dose. We will start the process of physical and occupational therapy. The baclofen was effective for his hiccupping. The ultrasound apparently is normal and his liver enzymes are actually trending down. BLANCA FRASER MD DR: [email or web address]/georges JOB#: [id number] / [id number]
[2018-08-13 06:20] LABS: ALBUMIN 2.9 g/dL (3.4-5.0); ALBUMIN/GLOBULIN RATIO 1.2 (1.0-1.7); CALCIUM 7.6 mg/dL (8.5-10.1); CREATININE 1.3 mg/dL (0.7-1.3); GFR 54.7; MAGNESIUM 1.5 mg/dL (1.8-2.4); POTASSIUM 3.2 mmol/L (3.5-5.1); TOTAL BILIRUBIN 1.9 mg/dL (0.2-1.0); TOTAL PROTEIN 5.4 g/dL (6.4-8.2)
[2018-08-13] MEDS ORDERED: POTASSIUM CHLORIDE 20 MEQ TABLET.ER. PO ONE (07:30)
[2018-08-13] MEDS ORDERED: MAGNESIUM SULFATE 2GM 50 ML IV ONE (07:30)
[2018-08-13] MEDS: PANTOPRAZOLE 40 MG TABLET. PO SCH (07:56)
[2018-08-13] MEDS: BACLOFEN 10 MG TABLET PO SCH ×2 (08:10→13:00)
[2018-08-13] MEDS: MAGNESIUM OXIDE 400 MG TABLET PO SCH ×2 (08:10→20:36)
[2018-08-13] MEDS: MVI, ADULT NO.4 WITH VIT K 10 ML, THIAMINE INJ 100 MG, FOLIC ACID INJ 1 MG in IV NORMAL... IV SCH ×4 (09:57)
[2018-08-13] MEDS ORDERED: LISINOPRIL 5 MG TABLET. PO SCH (10:30)
--- NOTE | 2018-08-13 11:37 | PDOC ---
CHACHO CHOUDHARY APRN 08/13/18 1137: PROGRESS NOTES Diagnosis Problem Problems Medical Problems: (1) Atrial fibrillation with RVR Status: Acute (2) Elevated d-dimer Status: Acute (3) History of heavy alcohol consumption Status: Acute (4) Hyperbilirubinemia Status: Acute (5) Hypomagnesemia Status: Acute (6) Hyponatremia Status: Acute (7) Nausea and vomiting Status: Acute Assessment Problems Medical Problems: (1) Atrial fibrillation with RVR Status: Acute (2) Elevated d-dimer Status: Acute (3) History of heavy alcohol consumption Status: Acute (4) Hyperbilirubinemia Status: Acute (5) Hypomagnesemia Status: Acute (6) Hyponatremia Status: Acute (7) Nausea and vomiting Status: Acute 1. atrial fibrillation with RVR - remains sinus rhythm at this point. Continue oral cardizem. [id number] = 2. Aspirin only at this time due to instability and fall risk. Need MCT for AF burden. could be ordered at discharge or can follow up with Primary business support specialist if leaving for home in the next week or two. 2. hypertension - add lisinopril ->changed to norvasc due to hyponatremia 3. HLD - continue statin 4. Etoh abuse - cessation encouraged. per PCP 5. electrolyte imbalance - K+ and Mg+ replaced, Na+ per PCP Subjective feeling much better, still unsteady when up with PT, no chest pain, no palpitations, no dyspnea Objective Vital Signs Date Time Temp Pulse Resp B/P (MAP) Pulse Ox O2 Delivery O2 Flow Rate FiO2 08/13/18 10:34 75 129/79 08/13/18 10:33 97 Room Air 08/13/18 08:12 18 08/13/18 05:50 98.7 08/11/18 07:10 97.0 Intake and Output 08/13/18 07:00 Intake Total 4441 ml Output Total 401 ml Balance 4040 ml Intake Oral 1690 ml IV Total 2751 ml Output Urine Total 401 ml # Voids 4 # Bowel Movements 2 Abdomen: Normal bowel sounds, Soft, No tenderness Heart: Regular rate, Normal S1, Normal S2 Extremities: No cyanosis, Normal pulses General: Alert, Oriented X3, Cooperative, No acute distress HEENT: Atraumatic, EOMI, Mucous membr. moist/pink Lungs: Clear to auscultation, Normal air movement Neuro: Normal speech, Strength at 5/5 X4 ext Psych/Mental Status: Mental status NL, Mood NL Review of Relevant I have reviewed the following items edwin (where applicable) has been applied. Labs Laboratory Tests Test 08/11/18 12:26 08/12/18 05:55 08/13/18 05:41 Sodium Level 126 mmol/L (136-145) 129 mmol/L (136-145) 126 mmol/L (136-145) Potassium Level 3.5 mmol/L (3.5-5.1) 3.1 mmol/L (3.5-5.1) 3.2 mmol/L (3.5-5.1) Chloride Level 89 mmol/L (98-107) 94 mmol/L (98-107) 94 mmol/L (98-107) Carbon Dioxide Level 27 mmol/L (21-32) 26 mmol/L (21-32) 26 mmol/L (21-32) Anion Gap 10 (6-14) 9 (6-14) 6 (6-14) Blood Urea Nitrogen 7 mg/dL (8-26) 8 mg/dL (8-26) 8 mg/dL (8-26) Creatinine 1.3 mg/dL (0.7-1.3) 1.3 mg/dL (0.7-1.3) 1.3 mg/dL (0.7-1.3) Estimated GFR (Cockcroft-Gault) 54.7 54.7 54.7 BUN/Creatinine Ratio 5 (6-20) 6 (6-20) 6 (6-20) Glucose Level 154 mg/dL (70-99) 95 mg/dL (70-99) 92 mg/dL (70-99) Calcium Level 8.0 mg/dL (8.5-10.1) 7.7 mg/dL (8.5-10.1) 7.6 mg/dL (8.5-10.1) Magnesium Level 1.8 mg/dL (1.8-2.4) 1.8 mg/dL (1.8-2.4) 1.5 mg/dL (1.8-2.4) Total Bilirubin 3.1 mg/dL (0.2-1.0) 2.5 mg/dL (0.2-1.0) 1.9 mg/dL (0.2-1.0) Aspartate Amino Transf (AST/SGOT) 26 U/L (15-37) 21 U/L (15-37) 18 U/L (15-37) Alanine Aminotransferase (ALT/SGPT) 31 U/L (16-63) 23 U/L (16-63) 22 U/L (16-63) Alkaline Phosphatase 130 U/L (46-116) 101 U/L (46-116) 88 U/L (46-116) Troponin I Quantitative < 0.017 ng/mL (0-0.055) Total Protein 6.6 g/dL (6.4-8.2) 5.6 g/dL (6.4-8.2) 5.4 g/dL (6.4-8.2) Albumin 3.6 g/dL (3.4-5.0) 3.0 g/dL (3.4-5.0) 2.9 g/dL (3.4-5.0) Albumin/Globulin Ratio 1.2 (1.0-1.7) 1.2 (1.0-1.7) 1.2 (1.0-1.7) White Blood Count 4.3 x10^3/uL (4.0-11.0) Red Blood Count 3.54 x10^6/uL (4.30-5.70) Hemoglobin 12.5 g/dL (13.0-17.5) Hematocrit 35.9 % (39.0-53.0) Mean Corpuscular Volume 102 fL (79-100) Mean Corpuscular Hemoglobin 35 pg (25-35) Mean Corpuscular Hemoglobin Concent 35 g/dL (31-37) Red Cell Distribution Width 14.7 % (11.5-14.5) Platelet Count 220 x10^3/uL (140-400) Neutrophils (%) (Auto) 68 % (31-73) Lymphocytes (%) (Auto) 22 % (24-48) Monocytes (%) (Auto) 9 % (0-9) Eosinophils (%) (Auto) 1 % (0-3) Basophils (%) (Auto) 1 % (0-3) Neutrophils # (Auto) 2.9 x10^3uL (1.8-7.7) Lymphocytes # (Auto) 0.9 x10^3/uL (1.0-4.8) Monocytes # (Auto) 0.4 x10^3/uL (0.0-1.1) Eosinophils # (Auto) 0.0 x10^3/uL (0.0-0.7) Basophils # (Auto) 0.0 x10^3/uL (0.0-0.2) Lipase 100 U/L (73-393) Medications Current Medications Diltiazem HCl (Cardizem) 125 mg STK-MED ONCE IV ; Start 08/11/18 at 04:13; Stop 08/11/18 at 04:14; Status DC Diltiazem HCl (Cardizem Iv Push) 25 mg STK-MED ONCE IVP ; Start 08/11/18 at 04: 13; Stop 08/11/18 at 04:14; Status DC Diltiazem HCl (Cardizem Iv Push) 20 mg 1X ONCE IVP Last administered on at 04:38; Start 08/11/18 at 04:15; Stop 08/11/18 at 05:06; Status DC Dextrose 100 ml @ As Directed STK-MED ONCE IV ; Start 08/11/18 at 04:14; Stop 08/11/18 at 04:15; Status DC Sodium Chloride 1,000 ml @ 125 mls/hr Q8H IV Last administered on 08/11/18at 06 :51; Start 08/11/18 at 04:15; Stop 08/11/18 at 12:14; Status DC Lorazepam (Ativan) 2 mg 1X ONCE IV Last administered on 08/11/18at 04:55; Start 08/11/18 at 04:30; Stop 08/11/18 at 05:06; Status DC Diltiazem HCl (Cardizem Iv Push) 25 mg 1X ONCE IVP Last administered on at 05:15; Start 08/11/18 at 05:15; Stop 08/11/18 at 05:37; Status DC Diltiazem HCl 125 mg/Dextrose 125 ml @ 10 mls/hr 1X ONCE IV Last administered on 08/11/18at 05:16; Start 08/11/18 at 05:15; Stop 08/11/18 at 17:44 ; Status DC Magnesium Sulfate 50 ml @ 25 mls/hr 1X ONCE IV Last administered on 08/11/18at 06:55; Start 08/11/18 at 05:45; Stop 08/11/18 at 07:44; Status DC Enoxaparin Sodium (Lovenox 100mg Syringe) 100 mg 1X ONCE SQ Last administered on 08/11/18at 06:53; Start 08/11/18 at 05:45; Stop 08/11/18 at 05:46; Status DC Iohexol (Omnipaque 350 Mg/ml) 50 ml 1X ONCE IV ; Start 08/11/18 at 06:15; Stop 08/11/18 at 06:16; Status DC Iohexol (Omnipaque 350 Mg/ml) 50 ml 1X ONCE IV ; Start 08/11/18 at 06:15; Stop 08/11/18 at 06:16; Status DC Ondansetron HCl (Zofran) 4 mg PRN Q4HRS PRN IV NAUSEA/VOMITING; Start 08/11/18 at 06:00; Stop 08/12/18 at 05:59; Status DC Sodium Chloride 1,000 ml @ 100 mls/hr Q10H IV Last administered on 08/12/18at 01:45; Start 08/11/18 at 06:00; Stop 08/12/18 at 05:59; Status DC Acetaminophen (Tylenol) 650 mg PRN Q4HRS PRN PO FEVER; Start 08/11/18 at 06:00 ; Stop 08/12/18 at 05:59; Status DC Info (Do NOT chart on this entry -- for MONITORING) 1 each PRN DAILY PRN MC SEE COMMENTS; Start 08/11/18 at 06:15; Stop 08/13/18 at 06:14; Status DC Iohexol (Omnipaque 300 Mg/ml) 50 ml 1X ONCE IV Last administered on 08/11/18at 06:27; Start 08/11/18 at 06:15; Stop 08/11/18 at 06:16; Status DC Iohexol (Omnipaque 300 Mg/ml) 50 ml 1X ONCE IV Last administered on 08/11/18at 06:27; Start 08/11/18 at 06:15; Stop 08/11/18 at 06:16; Status DC Influenza Virus Vaccine (Afluria Trivalent [id number] Syringe) 0.5 ml ONCE ONCE VAX IM Last administered on 08/12/18at 08:36; Start 08/11/18 at 09:00; Stop 08/11/18 at 09:01; Status DC Digoxin (Lanoxin) 500 mcg 1X ONCE IV Last administered on 08/11/18at 08:54; Start 08/11/18 at 09:00; Stop 08/11/18 at 09:01; Status DC Diltiazem HCl (Cardizem 24hr Cd) 240 mg DAILY PO Last administered on at 08:10; Start 08/11/18 at 10:00 Enoxaparin Sodium (Lovenox 100mg Syringe) 100 mg Q12HR SQ Last administered on 08/12/18at 08:38; Start 08/11/18 at 21:00; Stop 08/12/18 at 13:14; Status DC Albuterol/ Ipratropium (Duoneb) 3 ml TID PRN PRN NEB SHORTNESS OF BREATH; Start 08/11/18 at 10:45 Atorvastatin Calcium (Lipitor) 40 mg QHS PO Last administered on 08/12/18at 20: 50; Start 08/11/18 at 21:00 Pantoprazole Sodium (Protonix) 40 mg DAILYAC PO Last administered on 08/13/18at 07:56; Start 08/12/18 at 07:30 Multivitamins/ Minerals 10 ml/ Thiamine HCl 100 mg/Folic Acid 1 mg/Sodium Chloride 1,011.2 ml @ 100 mls/ hr DAILY IV Last administered on 08/13/18at 09: 57; Start 08/12/18 at 09:00; Stop 08/17/18 at 08:59 Chlordiazepoxide (Librium) 50 mg PRN Q1HR PRN PO For CIWA 8-14; Start 08/11/18 at 10:45 Chlordiazepoxide (Librium) 100 mg PRN Q1HR PRN PO For CIWA 15 or greater; Start 08/11/18 at 10:45 Lorazepam (Ativan) 4 mg PRN Q1HR PRN PO For CIWA 8-14; Start 08/11/18 at 10:45 Lorazepam (Ativan) 8 mg PRN Q1HR PRN PO For CIWA 15 or greater; Start 08/11/18 at 10:45 Lorazepam (Ativan) 2 mg PRN Q1HR PRN IV For CIWA 8-14; Start 08/11/18 at 10:45 Lorazepam (Ativan) 4 mg PRN Q1HR PRN IV For CIWA 15 or greater; Start 08/11/18 at 10:45 Lorazepam (Ativan) 2 mg PRN Q15MIN PRN IV ; Start 08/11/18 at 10:45; Status UNV Lorazepam (Ativan) 2 mg PRN Q15MIN PRN IV ; Start 08/11/18 at 10:45; Status UNV Lorazepam 100 mg/ Sodium Chloride 150 ml @ 3 mls/hr CONT PRN IV ; Start at 10:45; Status UNV Baclofen (Lioresal) 10 mg QID PO Last administered on 08/13/18at 08:10; Start 08/11/18 at 13:00 Tamsulosin HCl (Flomax) 0.4 mg QHS PO Last administered on 08/12/18at 20:50; Start 08/11/18 at 21:00 Magnesium Oxide (Magnesium Oxide) 400 mg BID PO Last administered on 08/13/18at 08:10; Start 08/11/18 at 22:00 Potassium Chloride (Klor-Con) 40 meq 1X ONCE PO Last administered on at 08:33; Start 08/12/18 at 07:30; Stop 08/12/18 at 07:35; Status DC Ondansetron HCl (Zofran Odt) 4 mg PRN Q8HRS PRN PO NAUSEA/VOMITING Last administered on 08/12/18at 20:49; Start 08/12/18 at 10:00 Enoxaparin Sodium (Lovenox 40mg Syringe) 40 mg Q24H SQ ; Start 08/12/18 at 13:30 Magnesium Sulfate 50 ml @ 25 mls/hr 1X ONCE IV Last administered on 08/13/18at 07:56; Start 08/13/18 at 07:30; Stop 08/13/18 at 09:29; Status DC Potassium Chloride (Klor-Con) 40 meq 1X ONCE PO Last administered on at 08:10; Start 08/13/18 at 07:30; Stop 08/13/18 at 07:31; Status DC Lisinopril (Prinivil) 5 mg DAILY PO Last administered on 08/13/18at 10:34; Start 08/13/18 at 10:30 Active Scripts Active Reported Aspirin Ec (Aspirin) 81 Mg Tablet.dr 1 Tab PO DAILY Multi Vitamin Daily (Multivitamin) 1 Each Tablet 1 Each PO DAILY Duoneb 0.5-3(2.5) Mg/3 Ml (Albuterol/Ipratropium) 3 Ml Ampul.neb 3 Ml NEB TID PRN PRN Triamterene-Hctz 37.5-25 Mg Cp (Triamterene/Hydrochlorothiazid) 1 Each Capsule 1 Cap PO DAILY Escitalopram Oxalate 10 Mg Tablet 1 Tab PO DAILY Trazodone Hcl 50 Mg Tablet 1 Tab PO QHS Atorvastatin Calcium 40 Mg Tablet 40 Mg PO QHS Protonix (Pantoprazole Sodium) 40 Mg Tablet.dr 1 Tab PO DAILY Vitals/I & O Vital Sign - Last 24 Hours 08/12/18 08/12/18 08/12/18 08/12/18 12:37 12:38 18:22 19:35 Temp 98.8 98.6 Pulse 71 67 69 Resp 13 19 18 B/P (MAP) 136/75 (95) 103/60 (74) 146/77 (100) Pulse Ox 97 96 97 O2 Delivery Room Air Room Air Room Air Room Air 08/12/18 08/13/18 08/13/18 08/13/18 19:35 00:05 05:50 08:10 Temp 98.6 98.7 Pulse 65 74 74 Resp 18 16 B/P (MAP) 154/88 (110) 134/87 (103) 134/87 Pulse Ox 95 96 O2 Delivery Room Air Room Air Room Air 08/13/18 08/13/18 08/13/18 08/13/18 08:11 08:12 10:33 10:34 Pulse 75 75 75 Resp 18 B/P (MAP) 151/96 (114) 129/79 (96) 129/79 Pulse Ox 97 97 O2 Delivery Room Air Room Air Room Air Intake and Output 08/12/18 08/12/18 08/13/18 15:00 23:00 07:00 Intake Total 500 ml 3491 ml 450 ml Output Total 401 ml Balance 99 ml 3491 ml 450 ml LÁZARO JOHN MD 08/13/18 1713: PROGRESS NOTES Review of Relevant Pt. seen and examined. Agree with above CLINICAL ORTHOPTIST note. Pleasant 67 y.o male with some element of alcoholism presented witha fib with RVR in the setting of excessive alcohol use and loss of his Denies any cardiac symptoms Echo here wnl. revered back to SR within 24 hours. No anticoagulation started due to alcohol history Would consider outpt event monitor for afib burden, then discuss anticoagulation If he remains in [place], we are happy to follow up with him, otherwise, f/u with his primary business support specialist in [place]. CHACHO CHOUDHARY APRN Aug 13, 2018 11:37 LÁZARO JOHN MD Aug 13, 2018 17:13
[2018-08-13] MEDS: ENOXAPARIN 40 MG/0.4 ML SYRINGE. SQ SCH (16:25)
[2018-08-13] MEDS: ATORVASTATIN CALCIUM 20 MG TABLET PO SCH (20:36)
[2018-08-13] MEDS: TAMSULOSIN 0.4 MG CAP.ER.24H. PO SCH (20:36)
--- NOTE | 2018-08-13 21:57 | PN ---
DATE: 08/13/2018 SUBJECTIVE: The patient is resting, slightly propped up, sleeping comfortably. On questioning him, he continued to be unsteady on his feet. He has also felt dizzy, has marked postural hypertension. OBJECTIVE: GENERAL: On examining him, he looked somewhat pale, but no jaundice or cyanosis. No lymphadenopathy, no thyromegaly. No jugular venous distention. No lower limb edema. VITAL SIGNS: His heart rate was 75, blood pressure was 109/70 standing and was 151/96 supine. His temperature was 98.7, respiratory rate was 18 and oxygen saturation was 97%. HEAD, EYES, EARS, NOSE AND THROAT: Normocephalic, atraumatic. NECK: Supple. HEART: Showed normal first and second heart sounds. No gallop, rub or murmur. CHEST: Clear to auscultation. No crepitation or rhonchi. ABDOMEN: Distended, soft, nontender. No guarding or rigidity. No organomegaly. All hernial orifices intact. Bowel sounds normal. NEUROLOGIC: He was more awake, alert, responding appropriately. All cranial nerves intact. He moves extremities without difficulty. LABORATORY DATA: This morning showed serum sodium of 126, potassium 3.2, chloride 94, bicarbonate 26, anion gap of 6, BUN 8, creatinine 1.3. Estimated GFR was 55 mL per minute. His glucose was 92. Calcium was 7.6, magnesium was 1.5. His total bilirubin is 1.9. AST, ALT, alkaline phosphatase were normal. Total protein was 5.4, albumin 2.9. His white cell count was 4300, hemoglobin 12.5, hematocrit 36, MCV 102 and platelet count 220,000. His prothrombin time was 11.1, INR 1.1, aPTT was 26. D-dimer was 0.76. His nasal screen for MRSA PCR was negative. ASSESSMENT: 1. Atrial fibrillation with rapid ventricular response, currently on Cardizem and his heart rate is well controlled. 2. Hypertension. 3. Hyperlipidemia. 4. Benign prostatic hypertrophy. 5. Hypomagnesemia for which he received 2 grams of magnesium sulfate. 6. Hypokalemia, potassium 3.2. 7. Hyponatremia, it is worsening. PLAN: My plan is to discontinue IV fluid, put him on fluid restriction and repeat all his labs tomorrow and if they normalize or at least trending upward, he can be discharged home with home health. BLANCA FRASER MD DR: [email or web address]/georges JOB#: [id number] / [id number]
[2018-08-14 02:08] LABS: UR POTASSIUM 21.8 mmol/L (Not Estab.)
[2018-08-14 06:00] VITALS: BP 141/90
[2018-08-14 06:31] LABS: HEMATOCRIT 32.9 % (39.0-53.0); HEMOGLOBIN 11.3 g/dL (13.0-17.5); RED BLOOD COUNT 3.21 x10^6/uL (4.30-5.70); RED CELL DISTRIBUTION WIDTH 15.2 % (11.5-14.5); WHITE BLOOD COUNT 3.6 x10^3/uL (4.0-11.0)
[2018-08-14 06:45] LABS: ALBUMIN 2.8 g/dL (3.4-5.0); ALBUMIN/GLOBULIN RATIO 1.1 (1.0-1.7); CREATININE 1.3 mg/dL (0.7-1.3); GFR 54.7; POTASSIUM 3.6 mmol/L (3.5-5.1); TOTAL BILIRUBIN 1.2 mg/dL (0.2-1.0); TOTAL PROTEIN 5.4 g/dL (6.4-8.2)
[2018-08-14] MEDS: PANTOPRAZOLE 40 MG TABLET. PO SCH (08:22)
[2018-08-14] MEDS: MAGNESIUM OXIDE 400 MG TABLET PO SCH (08:22)
[2018-08-14] MEDS ORDERED: amLODIPine BESYLATE 5 MG TABLET PO SCH (09:00)
--- NOTE | 2018-08-14 09:26 | PDOC ---
PROGRESS NOTES Diagnosis Problem Problems Medical Problems: (1) Atrial fibrillation with RVR Status: Acute (2) Elevated d-dimer Status: Acute (3) History of heavy alcohol consumption Status: Acute (4) Hyperbilirubinemia Status: Acute (5) Hypomagnesemia Status: Acute (6) Hyponatremia Status: Acute (7) Nausea and vomiting Status: Acute Assessment Problems Medical Problems: (1) Atrial fibrillation with RVR Status: Acute (2) Elevated d-dimer Status: Acute (3) History of heavy alcohol consumption Status: Acute (4) Hyperbilirubinemia Status: Acute (5) Hypomagnesemia Status: Acute (6) Hyponatremia Status: Acute (7) Nausea and vomiting Status: Acute 1. atrial fibrillation with RVR - remains sinus rhythm. Continue oral cardizem. [id number] = 2. Aspirin only at this time due to instability and fall risk. Need MCT for AF burden. follow up with primary wave guide assembler on return home in two weeks. 2. hypertension - allow higher pressures at this time due to orthostasis. Will likely need additional medication and he is to follow up with primary wave guide assembler on return home to discuss and re-evaluate. 3. HLD - continue statin 4. Etoh abuse - cessation encouraged. per PCP 5. electrolyte imbalance - K+, Mg+ WNL, Na+ improved with free water restriction. CV stable for discharge. Follow up with primary wave guide assembler on return home in 2 weeks. We are happy to see him in follow up if he decides to stay in the area. Subjective feeling much better, no chest pain, no dyspnea, no palpitations, lightheadedness improved. Objective Vital Signs Date Time Temp Pulse Resp B/P (MAP) Pulse Ox O2 Delivery O2 Flow Rate FiO2 08/14/18 08:26 Room Air 08/14/18 08:22 64 150/94 08/14/18 06:00 97.8 18 98 08/11/18 07:10 97.0 Intake and Output 08/14/18 07:00 Intake Total 1150 ml Output Total 600 ml Balance 550 ml Intake Oral 800 ml IV Total 350 ml Output Urine Total 600 ml # Voids 4 Abdomen: Normal bowel sounds, Soft Heart: Regular rate, Normal S1, Normal S2 Extremities: No cyanosis, Normal pulses, Other (trace to 1+ edema, TEDS on) General: Alert, Oriented X3, Cooperative, No acute distress HEENT: Atraumatic, EOMI, Mucous membr. moist/pink Lungs: Clear to auscultation, Normal air movement Neuro: Normal speech, Strength at 5/5 X4 ext Psych/Mental Status: Mental status NL, Mood NL Review of Relevant I have reviewed the following items edwin (where applicable) has been applied. Labs Laboratory Tests Test 08/13/18 05:41 08/13/18 15:08 08/14/18 05:40 08/14/18 06:09 Sodium Level 126 mmol/L (136-145) 131 mmol/L (136-145) Potassium Level 3.2 mmol/L (3.5-5.1) 3.6 mmol/L (3.5-5.1) Chloride Level 94 mmol/L (98-107) 96 mmol/L (98-107) Carbon Dioxide Level 26 mmol/L (21-32) 26 mmol/L (21-32) Anion Gap 6 (6-14) 9 (6-14) Blood Urea Nitrogen 8 mg/dL (8-26) 8 mg/dL (8-26) Creatinine 1.3 mg/dL (0.7-1.3) 1.3 mg/dL (0.7-1.3) Estimated GFR (Cockcroft-Gault) 54.7 54.7 BUN/Creatinine Ratio 6 (6-20) 6 (6-20) Glucose Level 92 mg/dL (70-99) 91 mg/dL (70-99) Calcium Level 7.6 mg/dL (8.5-10.1) 8.0 mg/dL (8.5-10.1) Magnesium Level 1.5 mg/dL (1.8-2.4) Total Bilirubin 1.9 mg/dL (0.2-1.0) 1.2 mg/dL (0.2-1.0) Aspartate Amino Transf (AST/SGOT) 18 U/L (15-37) 32 U/L (15-37) Alanine Aminotransferase (ALT/SGPT) 22 U/L (16-63) 29 U/L (16-63) Alkaline Phosphatase 88 U/L (46-116) 79 U/L (46-116) Total Protein 5.4 g/dL (6.4-8.2) 5.4 g/dL (6.4-8.2) Albumin 2.9 g/dL (3.4-5.0) 2.8 g/dL (3.4-5.0) Albumin/Globulin Ratio 1.2 (1.0-1.7) 1.1 (1.0-1.7) Urine Sodium 67 mmol/L (Not Estab.) Urine Potassium 21.8 mmol/L (Not Estab.) Urine Chloride 72 mmol/L (Not Estab.) White Blood Count 3.6 x10^3/uL (4.0-11.0) Red Blood Count 3.21 x10^6/uL (4.30-5.70) Hemoglobin 11.3 g/dL (13.0-17.5) Hematocrit 32.9 % (39.0-53.0) Mean Corpuscular Volume 102 fL (79-100) Mean Corpuscular Hemoglobin 35 pg (25-35) Mean Corpuscular Hemoglobin Concent 35 g/dL (31-37) Red Cell Distribution Width 15.2 % (11.5-14.5) Platelet Count 165 x10^3/uL (140-400) Medications Current Medications Diltiazem HCl (Cardizem) 125 mg STK-MED ONCE IV ; Start 08/11/18 at 04:13; Stop 08/11/18 at 04:14; Status DC Diltiazem HCl (Cardizem Iv Push) 25 mg STK-MED ONCE IVP ; Start 08/11/18 at 04: 13; Stop 08/11/18 at 04:14; Status DC Diltiazem HCl (Cardizem Iv Push) 20 mg 1X ONCE IVP Last administered on at 04:38; Start 08/11/18 at 04:15; Stop 08/11/18 at 05:06; Status DC Dextrose 100 ml @ As Directed STK-MED ONCE IV ; Start 08/11/18 at 04:14; Stop 08/11/18 at 04:15; Status DC Sodium Chloride 1,000 ml @ 125 mls/hr Q8H IV Last administered on 08/11/18at 06 :51; Start 08/11/18 at 04:15; Stop 08/11/18 at 12:14; Status DC Lorazepam (Ativan) 2 mg 1X ONCE IV Last administered on 08/11/18at 04:55; Start 08/11/18 at 04:30; Stop 08/11/18 at 05:06; Status DC Diltiazem HCl (Cardizem Iv Push) 25 mg 1X ONCE IVP Last administered on at 05:15; Start 08/11/18 at 05:15; Stop 08/11/18 at 05:37; Status DC Diltiazem HCl 125 mg/Dextrose 125 ml @ 10 mls/hr 1X ONCE IV Last administered on 08/11/18at 05:16; Start 08/11/18 at 05:15; Stop 08/11/18 at 17:44 ; Status DC Magnesium Sulfate 50 ml @ 25 mls/hr 1X ONCE IV Last administered on 08/11/18at 06:55; Start 08/11/18 at 05:45; Stop 08/11/18 at 07:44; Status DC Enoxaparin Sodium (Lovenox 100mg Syringe) 100 mg 1X ONCE SQ Last administered on 08/11/18at 06:53; Start 08/11/18 at 05:45; Stop 08/11/18 at 05:46; Status DC Iohexol (Omnipaque 350 Mg/ml) 50 ml 1X ONCE IV ; Start 08/11/18 at 06:15; Stop 08/11/18 at 06:16; Status DC Iohexol (Omnipaque 350 Mg/ml) 50 ml 1X ONCE IV ; Start 08/11/18 at 06:15; Stop 08/11/18 at 06:16; Status DC Ondansetron HCl (Zofran) 4 mg PRN Q4HRS PRN IV NAUSEA/VOMITING; Start 08/11/18 at 06:00; Stop 08/12/18 at 05:59; Status DC Sodium Chloride 1,000 ml @ 100 mls/hr Q10H IV Last administered on 08/12/18at 01:45; Start 08/11/18 at 06:00; Stop 08/12/18 at 05:59; Status DC Acetaminophen (Tylenol) 650 mg PRN Q4HRS PRN PO FEVER; Start 08/11/18 at 06:00 ; Stop 08/12/18 at 05:59; Status DC Info (Do NOT chart on this entry -- for MONITORING) 1 each PRN DAILY PRN MC SEE COMMENTS; Start 08/11/18 at 06:15; Stop 08/13/18 at 06:14; Status DC Iohexol (Omnipaque 300 Mg/ml) 50 ml 1X ONCE IV Last administered on 08/11/18 06:27; Start 08/11/18 at 06:15; Stop 08/11/18 at 06:16; Status DC Iohexol (Omnipaque 300 Mg/ml) 50 ml 1X ONCE IV Last administered on 08/11/18at 06:27; Start 08/11/18 at 06:15; Stop 08/11/18 at 06:16; Status DC Influenza Virus Vaccine (Afluria Trivalent [id number] Syringe) 0.5 ml ONCE ONCE VAX IM Last administered on 08/12/18at 08:36; Start 08/11/18 at 09:00; Stop 08/11/18 at 09:01; Status DC Digoxin (Lanoxin) 500 mcg 1X ONCE IV Last administered on 08/11/18at 08:54; Start 08/11/18 at 09:00; Stop 08/11/18 at 09:01; Status DC Diltiazem HCl (Cardizem 24hr Cd) 240 mg DAILY PO Last administered on at 08:22; Start 08/11/18 at 10:00 Enoxaparin Sodium (Lovenox 100mg Syringe) 100 mg Q12HR SQ Last administered on 08/12/18at 08:38; Start 08/11/18 at 21:00; Stop 08/12/18 at 13:14; Status DC Albuterol/ Ipratropium (Duoneb) 3 ml TID PRN PRN NEB SHORTNESS OF BREATH; Start 08/11/18 at 10:45 Atorvastatin Calcium (Lipitor) 40 mg QHS PO Last administered on 08/13/18at 20: 36; Start 08/11/18 at 21:00 Pantoprazole Sodium (Protonix) 40 mg DAILYAC PO Last administered on 08/14/18at 08:22; Start 08/12/18 at 07:30 Multivitamins/ Minerals 10 ml/ Thiamine HCl 100 mg/Folic Acid 1 mg/Sodium Chloride 1,011.2 ml @ 100 mls/ hr DAILY IV Last administered on 08/13/18at 09: 57; Start 08/12/18 at 09:00; Stop 08/13/18 at 13:38; Status DC Chlordiazepoxide (Librium) 50 mg PRN Q1HR PRN PO For CIWA 8-14; Start 08/11/18 at 10:45; Stop 08/13/18 at 13:40; Status DC Chlordiazepoxide (Librium) 100 mg PRN Q1HR PRN PO For CIWA 15 or greater; Start 08/11/18 at 10:45; Stop 08/13/18 at 13:40; Status DC Lorazepam (Ativan) 4 mg PRN Q1HR PRN PO For CIWA 8-14; Start 08/11/18 at 10:45 ; Stop 08/13/18 at 13:40; Status DC Lorazepam (Ativan) 8 mg PRN Q1HR PRN PO For CIWA 15 or greater; Start 08/11/18 at 10:45; Stop 08/13/18 at 13:40; Status DC Lorazepam (Ativan) 2 mg PRN Q1HR PRN IV For CIWA 8-14; Start 08/11/18 at 10:45 ; Stop 08/13/18 at 13:40; Status DC Lorazepam (Ativan) 4 mg PRN Q1HR PRN IV For CIWA 15 or greater; Start 08/11/18 at 10:45; Stop 08/13/18 at 13:40; Status DC Lorazepam (Ativan) 2 mg PRN Q15MIN PRN IV ; Start 08/11/18 at 10:45; Status UNV Lorazepam (Ativan) 2 mg PRN Q15MIN PRN IV ; Start 08/11/18 at 10:45; Status UNV Lorazepam 100 mg/ Sodium Chloride 150 ml @ 3 mls/hr CONT PRN IV ; Start at 10:45; Status UNV Baclofen (Lioresal) 10 mg QID PO Last administered on 08/13/18at 08:10; Start 08/11/18 at 13:00; Stop 08/13/18 at 13:38; Status DC Tamsulosin HCl (Flomax) 0.4 mg QHS PO Last administered on 08/13/18at 20:36; Start 08/11/18 at 21:00 Magnesium Oxide (Magnesium Oxide) 400 mg BID PO Last administered on 08/14/18at 08:22; Start 08/11/18 at 22:00 Potassium Chloride (Klor-Con) 40 meq 1X ONCE PO Last administered on at 08:33; Start 08/12/18 at 07:30; Stop 08/12/18 at 07:35; Status DC Ondansetron HCl (Zofran Odt) 4 mg PRN Q8HRS PRN PO NAUSEA/VOMITING Last administered on 08/12/18at 20:49; Start 08/12/18 at 10:00 Enoxaparin Sodium (Lovenox 40mg Syringe) 40 mg Q24H SQ Last administered on 08/13/18at 16:25; Start 08/12/18 at 13:30 Magnesium Sulfate 50 ml @ 25 mls/hr 1X ONCE IV Last administered on 08/13/18at 07:56; Start 08/13/18 at 07:30; Stop 08/13/18 at 09:29; Status DC Potassium Chloride (Klor-Con) 40 meq 1X ONCE PO Last administered on at 08:10; Start 08/13/18 at 07:30; Stop 08/13/18 at 07:31; Status DC Lisinopril (Prinivil) 5 mg DAILY PO Last administered on 08/13/18at 10:34; Start 08/13/18 at 10:30; Stop 08/13/18 at 11:31; Status DC Amlodipine Besylate (Norvasc) 5 mg DAILY PO ; Start 08/14/18 at 09:00; Stop 08/14/18 at 09:00; Status DC Active Scripts Active Reported Aspirin Ec (Aspirin) 81 Mg Tablet.dr 1 Tab PO DAILY Multi Vitamin Daily (Multivitamin) 1 Each Tablet 1 Each PO DAILY Duoneb 0.5-3(2.5) Mg/3 Ml (Albuterol/Ipratropium) 3 Ml Ampul.neb 3 Ml NEB TID PRN PRN Triamterene-Hctz 37.5-25 Mg Cp (Triamterene/Hydrochlorothiazid) 1 Each Capsule 1 Cap PO DAILY Escitalopram Oxalate 10 Mg Tablet 1 Tab PO DAILY Trazodone Hcl 50 Mg Tablet 1 Tab PO QHS Atorvastatin Calcium 40 Mg Tablet 40 Mg PO QHS Protonix (Pantoprazole Sodium) 40 Mg Tablet.dr 1 Tab PO DAILY Vitals/I & O Vital Sign - Last 24 Hours 08/13/18 08/13/18 08/13/18 08/13/18 10:33 10:34 12:13 12:15 Pulse 75 75 B/P (MAP) 129/79 (96) 129/79 150/79 (102) 138/72 (94) Pulse Ox 97 97 97 O2 Delivery Room Air Room Air Room Air 08/13/18 08/13/18 08/13/18 08/14/18 12:17 19:00 20:00 06:00 Temp 98.8 97.8 Pulse 63 71 64 Resp 18 18 B/P (MAP) 109/67 (81) 132/69 (90) 141/90 (107) Pulse Ox 97 96 98 O2 Delivery Room Air Room Air Room Air Room Air 08/14/18 08/14/18 08:22 08:26 Pulse 64 B/P (MAP) 150/94 O2 Delivery Room Air Intake and Output 08/13/18 08/13/18 08/14/18 15:00 23:00 07:00 Intake Total 950 ml 200 ml Output Total 600 ml Balance 350 ml 200 ml CHACHO CHOUDHARY APRN Aug 14, 2018 09:26
[2018-08-14 09:45] VITALS: BP 165/80
[2018-08-14 09:48] VITALS: BP 138/76
[2018-08-14] MEDS ORDERED: ASPI-630 PO (11:20)
[2018-08-14] MEDS ORDERED: TAMS0.4C2 PO (11:20)
--- NOTE | 2018-08-14 17:59 | DS ---
DATE OF DISCHARGE: 08/14/2018 HOSPITAL COURSE: The patient is a 67-year-old male patient who basically came to the Emergency Room complaining of nausea and vomiting. His symptoms started about 2 days prior to admission, has not been able to keep anything down both liquids and solids. Due to worsening symptoms, he was brought to the Emergency Room, was found to be in atrial fibrillation with rapid ventricular response. He apparently was diagnosed with atrial fibrillation and was on Xarelto and was taken off about 4 months ago. His has only recently and apparently has been in severe depression, has been drinking heavily about 2 liters of gin in 1 week. He was given a loading dose of Cardizem and started on Cardizem drip and admitted to the ICU for further evaluation. His D-dimer was high and he was also found to have marked hyponatremia, hypochloremia, and hypomagnesemia. He was continued on a Cardizem drip and eventually switched to oral Cardizem, was treated with banana bag. He was given constantly and we did start him on baclofen. He was found to have multiple electrolyte abnormalities that were all corrected. However, his sodium after going up 229, drifted back down, so I discontinued IV fluid and instituted fluid restriction. His sodium went up to 131, potassium is up to 3.6 and magnesium went up to 1.8 and down to 1.5. His liver enzymes were abnormal and we did ultrasound to make sure that there is no evidence of obstruction. In fact, his bilirubin came down nicely from 3.1-1.2 and all his liver enzymes were normalized. His CT scan of the chest with PE protocol was negative for pulmonary emboli. He was seen in consultation by the Cardiology team and they recommended to continue with Cardizem. 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 PHYSICAL EXAMINATION: GENERAL: When I saw him today, he looked well and was clearly in no apparent respiratory distress. There is no pallor, jaundice, cyanosis, or thyromegaly. No jugular venous distension. No lower limb edema. VITAL SIGNS: His heart rate was 64, blood pressure was 138/76, temperature was 97.8, respiratory rate was 18 and oxygen saturation was 98% on room air. HEAD, EYES, EARS, NOSE AND THROAT: Showed normocephalic, atraumatic. NECK: Supple. HEART: Showed normal first and second heart sounds with no gallop, rub or murmur. CHEST: Clear to auscultation. No crepitation or rhonchi. ABDOMEN: Distended, soft, nontender. No guarding or rigidity. No organomegaly. All hernial orifice intact. Bowel sounds normal. NEUROLOGIC: He is awake, alert, responding appropriately. All his cranial nerves are intact. He moves extremities without difficulty. He unfortunately continued to have marked postural hypertension. LABORATORY DATA: His lab work this morning showed that his white cell count was 3600, hemoglobin 11, hematocrit 33, MCV 102 and platelet count of 165,000. His chemistry showed serum sodium 131, potassium 3.6, chloride 96, bicarbonate 26, anion gap of 9, BUN 8, creatinine 1.3, estimated GFR was 55 mL per minute, his glucose was 91, calcium was 8. Total bilirubin, AST, ALT, alkaline phosphatase were normal. Total protein was 5.4, albumin 2.8. His serum lipase was 100. His TSH was normal at 2.81. DISCHARGE MEDICATIONS: He was discharged home to continue on following medications: Aspirin 162 mg once a day, tamsulosin 0.4 mg at bedtime, atorvastatin 40 mg at bedtime, ipratropium bromide, albuterol sulfate by nebulizer 3 times a day, multivitamin 1 tablet once a day, Protonix 40 mg once a day, trazodone 50 mg at bedtime. I have discontinued his escitalopram as well as triamterene/hydrochlorothiazide. He should continue on fluid restriction of at least 1-1-1/2 liters a day and should follow with his primary care physician and shingle grader. BLANCA FRASER MD DR: [email or web address] JOB#: [id number] / [id number]
== END 2018-08-14 12:00 | disposition home or self-care (01) | DRG 309 ==
LOC: ER 03:58 → ICU 05:48
PROVIDERS: ADMIT Internal Medicine; ATTEND Internal Medicine
DX: I48.91 Unspecified atrial fibrillation (principal); E87.1 Hypo-osmolality and hyponatremia; R17 Unspecified jaundice; E87.6 Hypokalemia; E78.5 Hyperlipidemia, unspecified; E83.42 Hypomagnesemia; E87.8 Other disorders of electrolyte and fluid balance, not elsewhere classified; F10.10 Alcohol abuse, uncomplicated; F32.9 Major depressive disorder, single episode, unspecified; I10 Essential (primary) hypertension; N40.0 Benign prostatic hyperplasia without lower urinary tract symptoms; R29.6 Repeated falls; R79.1 Abnormal coagulation profile; Z80.1 Family history of malignant neoplasm of trachea, bronchus and lung; Z80.8 Family history of malignant neoplasm of other organs or systems; Z87.01 Personal history of pneumonia (recurrent); Z82.3 Family history of stroke; Z91.81 History of falling; Z79.899 Other long term (current) drug therapy; Z90.49 Acquired absence of other specified parts of digestive tract
CPT/HCPCS: 36415; 71045; 71275; 76705; 80053; 80061; 82436; 82553; 83690; 83735; 83880; 83935; 84133; 84300; 84443; 84484; 85025; 85027; 85379; 85610; 85730; 87641; 90471; 90756; 93005; 93306; 96365; 96366; 96368; 96372; 96375; 96376; J1160; J1650; J2060; J3475; J3490; Q0162; Q9967; 97110; 97116; 99291-25; J7030; Q2035